=== PATIENT | female | born 1995 | race Caucasian/White ===

== ENCOUNTER 2016-07-12 11:52 | Emergency (ER) | payer BC, OTHER ==
[~2016-07-12] VITALS: Ht 170.2 cm; Wt 55.6 kg
[2016-07-12 11:54] VITALS: TEMP 36.7; Ht 170.2 cm; Wt 55.6 kg
--- NOTE | 2016-07-12 12:57 | DIAGNOSTIC IMAGING REPORT ---
LEFT ANKLE 3 VIEWS HISTORY: left ankle pain COMPARISON: None. FINDINGS: There is no fracture or dislocation. Diffuse soft tissue swelling. No radiopaque foreign bodies. IMPRESSION: No fractures. Electronically signed by: Riaz Patton M.D. 07/12/2016 12:55 PM Dictated Date/Time: 07/12/2016 12:54 PM
--- NOTE | 2016-07-12 13:08 | DIAGNOSTIC IMAGING REPORT ---
LEFT FOOT 3 VIEWS CLINICAL HISTORY: Left foot pain. FINDINGS: 3 views of left foot are obtained. No prior studies are available for comparison at the time of dictation. The skeletal structures are well mineralized. No fracture is seen. The joint spaces of the foot are well-maintained. The overlying soft tissues are within normal limits. IMPRESSION: Unremarkable radiographic assessment of the left foot.. Electronically signed by: Gt Henley M.D. 07/12/2016 1:06 PM Dictated Date/Time: 07/12/2016 1:05 PM
--- NOTE | 2016-07-12 13:23 | EMERGENCY ROOM VISIT NOTE ---
ED Visit Note First contact with patient: 11:58 CHIEF COMPLAINT: Ankle pain HISTORY OF PRESENT ILLNESS: This 20-year-old female patient presents to the emergency department ambulatory after sustaining an injury to the left ankle and foot with a twisting, inversion motion when she injured it while skateboarding yesterday. Complains of mild swelling and pain. The patient complains of pain along the outside of the ankle. The patient does have pain of the foot. The patient rates the pain as minimal and 0/10 when not bearing weight. There was no audible pop. The patient is non-able to bear weight on the foot. Constant pain, worse with movement, weight bearing, and the dependent position. No knee pain, the patient is able to move their toes. No numbness or weakness of the foot, no laceration. The patient has none had a previous injury to this ankle. The patient has taken nothing for the pain. The patient denies any other injury. REVIEW OF SYSTEMS: A 6 system review of systems was completed with positives and pertinent negatives listed in the HPI. ALLERGIES: No known drug allergies MEDICATIONS: None PMH: Patient denies SOCIAL HISTORY: The patient does not smoke. She lives locally PHYSICAL EXAM: Vital Signs: Reviewed Nurse's notes, vital signs stable. GENERAL : This is a 20-year-old female, no acute distress, but appears in pain, well- developed, well-nourished. MENTAL STATUS: Alert, oriented to person place and time, and cooperative. MUSCULOSKELETAL: The left ankle is swollen and tender over the lateral malleolus, but the skin is intact and there is no ligamentous instability. There is mild fifth metatarsal tenderness. There is no tenderness over the rest of the foot. There is no calf or tibia/fibular tenderness. There is no visual deformity. The foot and toes are warm and well- perfused. Dorsalis pedis pulse 2+. Sensation to pain and light touch is intact. Capillary refill less than 2 seconds. EMERGENCY DEPARTMENT COURSE: I examined the patient. X-rays of the left ankle and foot were reviewed by myself and read by radiology and reveal no fracture dislocation. A gel splint was applied to the ankle under my direction and the position was satisfactory. Neurovascular status was rechecked and intact. The patient was has her own crutches. The patient was discharged home in good condition. LEFT ANKLE 3 VIEWS HISTORY: left ankle pain COMPARISON: None. FINDINGS: There is no fracture or dislocation. Diffuse soft tissue swelling. No radiopaque foreign bodies. IMPRESSION: No fractures. LEFT FOOT 3 VIEWS CLINICAL HISTORY: Left foot pain. FINDINGS: 3 views of left foot are obtained. No prior studies are available for comparison at the time of dictation. The skeletal structures are well mineralized. No fracture is seen. The joint spaces of the foot are well-maintained. The overlying soft tissues are within normal limits. IMPRESSION: Unremarkable radiographic assessment of the left foot.. Current/Historical Medications No Active Prescriptions or Reported Meds Vital Signs Date Time Temp Pulse Resp B/P Pulse Ox O2 Delivery O2 Flow Rate FiO2 07/12/16 13:40 74 16 104/74 98 07/12/16 11:54 36.7 69 20 118/78 96 Room Air Departure Information Impression Primary Impression: Ankle sprain Dispostion Home / Self-Care Condition GOOD Prescriptions No Active Prescriptions or Reported Meds Referrals [facility] (PCP) Manpreet Baig D.O. Patient Instructions Ankle Sprain, [facility] Additional Instructions Ice and elevate ankle for swelling and pain. Crutches with weight bearing as tolerated. Wear the splint 7-14 days or until pain subsides. Ibuprofen 600 mg every 6 hrs for pain. If ankle has not improved within 5-7 days, follow-up family doctor or orthopedic surgeon for further evaluation and management. Problem Qualifiers Primary Impression: Ankle sprain
[2016-07-12 13:40] VITALS: BP 104/74; PULSE 74; O2SAT 98
== END 2016-07-12 13:40 | disposition home or self-care (01) ==
LOC: C.EDB 11:53 → C.EDD 13:40
DX: S93.402A Sprain of unspecified ligament of left ankle, initial encounter (principal); X58.XXXA Exposure to other specified factors, initial encounter